=== PATIENT | female | born 1990 ===

== ENCOUNTER → 2019-06-01 18:18 | Outpatient (CLI) | payer OTHER, SELFPAY | DX: Z23 Encounter for immunization (principal) | CPT/HCPCS: 90471; 90686 ==

== ENCOUNTER → 2019-06-21 12:26 | Outpatient (CLI) | payer OTHER, SELFPAY | PROVIDERS: Visit Provider Physician Assistant | DX: R30.0 Dysuria (principal); R22.1 Localized swelling, mass and lump, neck | CPT/HCPCS: 87070; 87077; 87086; 87147; 87186 ==